=== PATIENT | female | born 1965 | race Caucasian/White ===

== ENCOUNTER → 2017-04-16 | Outpatient (CLI) | payer OTHER ==
[~2017-04-16] MED LIST: NOMEDS; SEPTRA DS 800 M1 TAB PO
--- NOTE | 2017-04-16 15:18 | RADIOLOGY REPORT PS360 ---
LUMBAR SPINE 5 VIEWS, PELVIS AP ONLY HISTORY: LOW BACK PAIN,RT SCIATICA,S/P FALL 04/12/17 Patient Age: 51 years: Female Ordering Physician: Imtiaz Vegas MD ... LUMBAR SPINE SERIES, 5 VIEW... TECHNIQUE: 5 view lumbar spine series COMPARISON :No previous lumbar studies FINDINGS Vertebral bodies are intact. No convincing compression fractures. Superior L4 vertebra is within spectrum of normal & reflects the anterior marginal osteophytes. L5/S1. Disc space narrowing most notable at this level. Borderline disc space narrowing at L3/4 . Mild anterior marginal osteophytes formation throughout the lumbar spine. Pedicles transverse processes. SI joints appear satisfactory On the oblique view to the left, a subtle lucent line transverses the superior left L5 facet, but I believe this is a artifact,/ mach line which continues beyond this structure into adjacent structures. Thus favoring artifact. Not felt to be of acute significance currently, but should be persist or progress consider further evaluation with CT or MR. ======== AP PELVIS. . Single AP view of pelvis also performed. Sacrum intact. AP view the hips unremarkable. Osseous pelvis overall intact with no lesions or acute findings. As stated SI joints sacrum appears satisfactory. Generous stool at the cecum, & right colon. \ IMPRESSION....... Osseous pelvis intact. Hips joint spaces well-maintained pain. SI joints are and osseous pelvis unremarkable . IMPRESSION:
== END ==
LOC: RAD 14:39
DX: M54.5 Low back pain (principal); M54.31 Sciatica, right side